=== PATIENT | male | born 1980 | race Caucasian/White ===

== ENCOUNTER 2021-01-16 11:54 | Emergency (ER) | payer OTHER ==
[2021-01-16] MEDS ORDERED: Bacitracin Oint 1 GM U/D Packet TOP ONE (12:03)
[2021-01-16] MEDS ORDERED: Amoxicillin/Clavulanate K 875-125 MG Tab PO ONE (12:03)
[2021-01-16] MEDS ORDERED: Diphtheria,Pertussis(Acell),Tetanus Vaccine 0.5 ML Syringe IM ONE (12:03)
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
== END 2021-01-16 13:19 | disposition home or self-care (01) ==
LOC: MW.ED 11:54
DX: S61.451A Open bite of right hand, initial encounter (principal); S51.852A Open bite of left forearm, initial encounter; Z23 Encounter for immunization; S00.83XA Contusion of other part of head, initial encounter; Y04.1XXA Assault by human bite, initial encounter
CPT/HCPCS: 70450; 73130; 90471; 90715; 99284; A9270

== ENCOUNTER 2021-04-22 10:19 | Emergency (ER) | payer OTHER ==
--- NOTE | 2021-04-22 10:46 | EDM.PDOC ---
ED HPI GENERAL MEDICAL PROBLEM - General Chief Complaint: Skin Complaint Stated Complaint: R ARM INFECTED Time Seen by Provider: 04/22/21 10:21 Source of Information: Reports: Patient History Limitations: Reports: No Limitations - History of Present Illness INITIAL COMMENTS - FREE TEXT/NARRATIVE: Patient is a 40-year-old male presents today for rash and wounds on his right arm. States that it started on Sunday the area being more red and swollen painful. Patient has had abscess before the past with similar. Denies any fever chills nausea vomiting or other complaints. Says the pain is made worse with touching or moving arm. Again patient has no other systemic symptoms or complaints. Right Arm Pain Score (Numeric/FACES): 6 - Related Data Allergies Allergy/AdvReac Type Severity Reaction Status Date / Time No Known Allergies Allergy Verified 04/22/21 10:32 Home Meds: Home Meds Gabapentin [Neurontin] 300 mg PO TID 01/16/21 [History] Sulfamethoxazole/Trimethoprim [Bactrim Ds Tablet] 1 each PO BID 5 Days #10 tablet 04/22/21 [Rx] cephALEXin [Keflex] 500 mg PO Q6H 5 Days #20 cap 04/22/21 [Rx] Past Medical History - Past Health History Medical/Surgical History: Denies Medical/Surgical History Other Musculoskeletal History: Nerve pain Psychiatric History: Reports: Depression - Infectious Disease History Infectious Disease History: Reports: Chicken Pox Social & Family History - Family History Family Medical History: No Pertinent Family History - Tobacco Use Tobacco Use Status *Q: Never Tobacco User - Caffeine Use Caffeine Use: Reports: None - Recreational Drug Use Recreational Drug Use: No ED ROS GENERAL - Review of Systems Review Of Systems: See Below Constitutional: Reports: No Symptoms HEENT: Reports: No Symptoms Respiratory: Reports: No Symptoms Cardiovascular: Reports: No Symptoms Endocrine: Reports: No Symptoms GI/Abdominal: Reports: No Symptoms : Reports: No Symptoms Musculoskeletal: Reports: No Symptoms Skin: Reports: Other (abscess) Neurological: Reports: No Symptoms Psychiatric: Reports: No Symptoms Hematologic/Lymphatic: Reports: No Symptoms Immunologic: Reports: No Symptoms ED EXAM, SKIN/RASH Exam: See Below Exam Limited By: No Limitations General Appearance: Alert, WD/WN, No Apparent Distress Eye Exam: Bilateral Eye: EOMI, PERRL Head: Atraumatic Neck: Normal Inspection, Supple Respiratory/Chest: No Respiratory Distress, Lungs Clear Cardiovascular: Normal Peripheral Pulses, Regular Rate, Rhythm GI/Abdominal: Normal Bowel Sounds Extremities: Normal Inspection, Redness (swelling under arm 1 large 1 medium and 2 small abscesses) Neurological: Alert, Oriented ED SKIN PROCEDURES - I&D Site: right underarm Skin Prep: Providone-Iodine (Betadine) Local Anesthesia: Lidocaine: 1% Plain Local Anesthetic Volume: 3cc Area Incised With: 11 Blade Drainage: Purulent, Bloody Probed to Break Up Loculations: Yes Packed With: 1/4 in. Iodoform Sterile Dressinx4(s) Complications: No Course - Vital Signs Last Recorded V/S: Last Vital Signs Temp 97.2 F 04/22/21 10:32 Pulse 67 04/22/21 10:32 Resp 16 04/22/21 10:32 BP 116/74 04/22/21 10:32 Pulse Ox 98 04/22/21 10:32 - Orders/Labs/Meds Meds: Medications Discontinued Medications Generic Name Dose Route Start Last Admin Trade Name Claudia PRN Reason Stop Dose Admin Lidocaine HCl 5 ml 04/22/21 10:42 04/22/21 11:13 Lidocaine 1% 5 Ml Sdv INJECT 04/22/21 10:43 5 ml ONETIME ONE Administration Departure - Departure Time of Disposition: 11:28 Disposition: Home, Self-Care 01 Condition: Good Clinical Impression: Abscess of axilla, right, Abscess - Discharge Information *PRESCRIPTION DRUG MONITORING PROGRAM REVIEWED*: Not Applicable *COPY OF PRESCRIPTION DRUG MONITORING REPORT IN PATIENT AGUSTIN: Not Applicable Prescriptions: Sulfamethoxazole/Trimethoprim [Bactrim Ds Tablet] 1 each PO BID 5 Days #10 tablet cephALEXin [Keflex] 500 mg PO Q6H 5 Days #20 cap Instructions: Skin Abscess Referrals: Eligio Carr NP [Primary Care Provider] - Forms: ED Department Discharge Additional Instructions: The following information is given to patients seen in the emergency department who are being discharged to home. This information is to outline your options for follow-up care. We provide all patients seen in our emergency department with a follow-up referral. The need for follow-up, as well as the timing and circumstances, are variable depending upon the specifics of your emergency department visit. If you don't have a primary care physician on staff, we will provide you with a referral. We always advise you to contact your personal physician following an emergency department visit to inform them of the circumstance of the visit and for follow-up with them and/or the need for any referrals to a consulting specialist. The emergency department will also refer you to a specialist when appropriate. This referral assures that you have the opportunity for follow-up care with a specialist. All of these measure are taken in an effort to provide you with optimal care, which includes your follow-up. Under all circumstances we always encourage you to contact your private physician who remains a resource for coordinating your care. When calling for follow-up care, please make the office aware that this follow-up is from your recent emergency room visit. If for any reason you are refused follow-up, please contact the [facility] Emergency Department at and asked to speak to the emergency department charge nurse. Please follow up with your primary care physician. If you do not have a primary care physician, see below: [facility] [address] [place] [id number] [address] [facility] [address] [place] [address] Was seen today for abscess on your right arm. We did will be called incision and drainage we put a hold and drainage of the pus out of it. You are currently on Bactrim we are also adding Keflex to the area as well for pelvic infection. Please come back in 2 days to get a check to make sure the swelling and drainage is getting better. You have any other concerning signs symptoms for then please return to the ED. Sepsis Event Note (ED) - Evaluation Sepsis Screening Result: No Definite Risk - Focused Exam Vital Signs: Vital Signs Temp Pulse Resp BP Pulse Ox 04/22/21 10:32 97.2 F 67 16 116/74 98 - Assessment/Plan Plan: Patient is a 40-year-old male who presents today for abscesses on his right arm. We will I&D these and place patient on antibiotics.
== END 2021-04-22 11:41 | disposition home or self-care (01) ==
LOC: MW.ED 10:19
DX: L02.411 Cutaneous abscess of right axilla (principal)
CPT/HCPCS: 10060; 10061; 99282; 99283-25

== ENCOUNTER 2021-05-15 23:34 | Emergency (ER) | payer OTHER ==
[2021-05-16] MEDS ORDERED: Sodium Chloride 0.9% 2.5 ML Syringe FLUSH PRN (00:18)
[2021-05-16] MEDS ORDERED: Sodium Chloride 0.9% 10 ML Syringe FLUSH PRN (00:18)
[2021-05-16] MEDS ORDERED: Morphine 4 MG/ML Syringe IVPUSH ONE (00:27)
[2021-05-16] MEDS ORDERED: Ondansetron 4 MG/2 ML SDV IVPUSH ONE (00:27)
[2021-05-16 00:47] LABS: BLOOD UREA NITROGEN,BUN 15 mg/dL (7.0-18.0); CARBON DIOXIDE,CO2 27.8 mmol/L (21.0-32.0); CHLORIDE,CL 107 mmol/L (98-107); GLUCOSE RANDOM 99 mg/dL (74-106); LIPASE 264 U/L (73-393); POTASSIUM,K 4.5 mmol/L (3.5-5.1); SODIUM,NA 141 mmol/L (136-148)
[2021-05-16] MEDS ORDERED: Iopamidol 755 Mg/ML 100 ML Bottle IVPUSH ONE (00:54)
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
[2021-05-16] MEDS ORDERED: HYDROmorphone 1 MG/ML Syringe IVPUSH ONE (02:35)
== END 2021-05-16 03:17 | disposition home or self-care (01) ==
LOC: MW.ED 23:34
DX: L76.22 Postprocedural hemorrhage of skin and subcutaneous tissue following other procedure (principal); G89.18 Other acute postprocedural pain; R10.30 Lower abdominal pain, unspecified
CPT/HCPCS: 36415; 74177; 80053; 83690; 85025; 96374; 96375; 99284; J1170; J2270; J2405; Q9967